=== PATIENT | female | born 1980 | race Caucasian/White ===

== ENCOUNTER 2017-06-04 01:56 | Observation (INO) ==
[2017-06-04] MEDS ORDERED: 0.9 % Sodium Chloride 500 ML IVC ONE (02:15)
[2017-06-04] MEDS ORDERED: Aspirin 81 MG TAB.CHEW PO ONE (02:15)
[2017-06-04] MEDS ORDERED: Nitroglycerin 0.4 MG TAB.SUBL SL PRN (02:17)
[2017-06-04 02:26] LABS: Basophils % 0.5 %; Eosinophils # 0.3 K/mcL (0.0-0.6); Eosinophils % 3.4 %; Hematocrit 39.8 % (35.3-44.9); Hemoglobin 13.1 g/dL (11.5-15.4); Immature Granulocytes % 0.2 % (0-4); Immature Platelets 1.6 % (1.1-6.1); Lymphocytes # 2.1 K/mcL (0.6-4.6); Lymphocytes % 25.2 %; Mean Corpuscular HGB Conc 32.9 g/dL (31.6-35.5); Mean Corpuscular Hemoglobin 28.4 pg (28.0-33.3); Mean Corpuscular Volume 86.3 fL (83.0-100.0); Monocytes # 0.7 K/mcL (0.0-1.3); Monocytes % 8.5 %; Platelet Count 297 K/mcL (140-400); Red Blood Count 4.61 M/mcL (3.82-4.97); Red Cell Distribution Width 12.6 % (11.5-14.5); Segmented Neutrophils % 62.2 %
--- NOTE | 2017-06-04 02:29 | Emergency Department Note ---
Disposition Clinical Impression: Chest pain Qualifiers: Chest pain type: unspecified Qualified Code(s): R07.9 - Chest pain, unspecified Disposition: Admitted As Inpatient Condition: Undetermined Instructions: Chest Pain (ED) Referrals: Telly Conley MD [Primary Care Provider] - Forms: ED Satisfaction Letter Time of Disposition: 05:41 General Adult HPI - General Chief complaint: ED Chest Pain Stated complaint: Jaw Pain, Chest Discomfort Time Seen by Provider: 06/04/17 02:04 Source: patient, family Mode of arrival: ambulatory Limitations: no limitations Nursing Notes Reviewed: Yes Vital Signs Reviewed: Yes - History of Present Illness HPI Narrative: 36-year-old obese female presents to the emergency department with sharp jaw pain that started around 2300 stated as the worst pain of her life. Jaw pain was superseded by chest pain that felt like her "heart was beating off beat", "weird pain I've never had before", "squeezing feeling in chest". Pt did chew 81mg of ASA at this time. When complaints did not go away pt reported to the ED for chest pain workup. Patient denies recent illnesses, difficulty breathing, and shortness of breath ,nausea vomiting or diarrhea, denies cardiac history but reports paternal grandfather with first heart attack at age 35. Pt Subjective Complaint: Chest pain, jaw pain Onset (ago): hour(s) (3) Location: chest, other (jaw) Radiation: non-radiation Pain Severity: severe (initially, then taper off) Pain Scale: 0 Quality: sharp Consistency: intermittent, now resolved Improves with: nothing Worsens with: nothing Associated symptoms: Reports: chest pain. Denies: confusion, cough, diaphoresis , fever/chills, headaches, loss of appetite, nausea/vomiting, shortness of breath - Related Data Allergies Allergy/AdvReac Type Severity Reaction Status Date / Time No Known Allergies Allergy Verified 06/04/17 02:34 All systems ED: reviewed and negative except as stated. Review of Systems: As Per HPI Constitutional: Reports: as per HPI. Denies: fever, chills, weakness Eyes: Reports: as per HPI ENT ED: Reports: as per HPI Cardiovascular: Reports: as per HPI, chest pain. Denies: palpitations, dyspnea on exertion, edema, syncope Respiratory: Reports: as per HPI. Denies: cough, dyspnea, wheezes Gastrointestinal: Reports: as per HPI. Denies: abdominal pain, nausea, vomiting , constipation Neurological: Denies: headache Psychiatric: Reports: anxiety Past Medical History - Past Medical History Attestation: Yes The following information was validated with the patient. 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 - Social History Smoking Status: Never smoker Smokeless Tobacco Status: No Alcohol use: Reports: none Drug use: Reports: none Maternal Grandfather Race: Family Member Living Status: Hx Family Cardiac Disorders: Yes (multi MIs (age 33 was first), heart diseases) Physical Exam - General Limitations: no limitations General appearance: alert, in no apparent distress - Head Head exam: atraumatic, normocephalic, normal inspection - Eye Eye exam: Present: normal appearance, PERRL - Neck Neck exam: Present: normal inspection, full ROM, trachea midline - Chest Chest inspection: Present: normal inspection, symmetric chest wall rise - Respiratory Respiratory exam: Present: normal lung sounds bilaterally. Absent: respiratory distress, wheezes, accessory muscle use - Cardiovascular Cardiovascular exam: Present: normal rhythm, tachycardia, normal heart sounds, systolic murmur (Pt states has never been told of murmur previously--murmur 3/6 systolic) - Abdominal Exam Abdominal exam: Present: soft, Non-Tender, normal bowel sounds. Absent: tenderness, distention - Neurological Exam Neurological exam: Present: alert, oriented X3, CN II-XII intact - Psychiatric Psychiatric exam: Present: normal affect, normal mood, anxious - Skin Skin exam: Present: warm, dry, intact, normal color Course Course Narrative: 36-year-old obese female presents to the emergency department with sharp jaw pain that started around 2300 stated as the worst pain of her life. Jaw pain was superseded by chest pain that felt like her "heart was beating off beat", "weird pain I've never had before", "squeezing feeling in chest". Pt did chew 81mg of ASA at this time. When complaints did not go away pt reported to the ED for chest pain workup. Patient denies recent illnesses, difficulty breathing, and shortness of breath ,nausea vomiting or diarrhea, denies cardiac history but reports paternal grandfather with first heart attack at age 35. - Reevaluation(s) Reevaluation #1: Patient resting comfortably in her room. No further episodes of chest pain. Appears comfortable in no distress. Serum labs returning with negative, EKG SR ; 3/6 systolic murmur on auscultation, pt states was never told she had a murmur Presented assessment, labs, EKG to Dr. Davalos who agrees patient should continue to have ACS rule out workup. Time: 03:17 Reevaluation #2: After review of labs/assesment/risk factors, should be admitted for CP r/o. At this time we do not have telemetry beds available for admission, pt would need to transfer to another facility. Spoke with patient about wishes for admission. Patient expresses wishes to go to [facility]. 0430-[facility] unable to accommodate CP R/O d/t no labor relations director availability. Spoke with patient, agreeable to transfer to [facility]. [facility] placed pt on waiting list for bed at this time. Pt continues to be stable 0500- patient unsure of forming to transfer to [facility] in [place]. Unsure if wants to transfer due to inability to pay because she has no insurance. She is given a [facility]. Encourage patient to follow through which has been rule out tests seen with risks and benefits of staying or going. Time: 04:02 Reevaluation #3: Telemetry bed has been located in the hospital. Hospitalist has been paged for admission to [facility] for chest pain rule out. Case discussed with Dr. Davalos who agrees with plan of care. Patient continues to rest comfortably without chest pain, shortness of breath, difficulty breathing, or any other ailments. 0606--Spoke with Dr. Bustamante, agree to accept pt to hold bed in ED [facility] as soon as mre critical patient is moved and room cleaned. Time: 06:04 Vital Signs Temperature 98.2 F 06/04/17 01:57 Pulse Rate 93 06/04/17 01:57 Respiratory Rate 18 06/04/17 01:57 Blood Pressure 134/90 06/04/17 01:57 O2 Sat by Pulse Oximetry 98 06/04/17 01:57 Temperature 98.2 F 06/04/17 01:57 Pulse Rate 88 06/04/17 04:44 Respiratory Rate 15 06/04/17 04:44 Blood Pressure 112/73 06/04/17 04:44 O2 Sat by Pulse Oximetry 99 06/04/17 04:44 Oxygen Delivery Oxygen Delivery Room Air Medical Decision Making - MDM Narrative Medical decision making narrative: 36-year-old obese female presents to the emergency department with sharp jaw pain that started around 2300 stated as the worst pain of her life. Jaw pain was superseded by chest pain that felt like her "heart was beating off beat", "weird pain I've never had before", "squeezing feeling in chest". Pt did chew 81mg of ASA at this time. When complaints did not go away pt reported to the ED for chest pain workup. Patient denies recent illnesses, difficulty breathing, and shortness of breath ,nausea vomiting or diarrhea, denies cardiac history but reports paternal grandfather with first heart attack at age 35. - Lab Data Result diagrams: 06/04/17 02:15 06/04/17 02:15 Lab Results 06/04/17 06/04/17 06/04/17 Range/Units 02:15 02:15 02:15 WBC 8.1 (4.3-11.1) K/mcL RBC 4.61 (3.82-4.97) M/mcL Hgb 13.1 (11.5-15.4) g/dL Hct 39.8 (35.3-44.9) % MCV 86.3 (83.0-100.0) fL MCH 28.4 (28.0-33.3) pg MCHC 32.9 (31.6-35.5) g/dL RDW 12.6 (11.5-14.5) % Plt Count 297 (140-400) K/mcL MPV 9.0 L (9.4-12.4) fL Immature Gran % 0.2 (0-4) % Seg Neutrophils % 62.2 % Lymphocytes % 25.2 % Monocytes % 8.5 % Eosinophils % 3.4 % Basophils % 0.5 % Neutrophils # 5.0 (1.6-8.9) K/mcL Lymphocytes # 2.1 (0.6-4.6) K/mcL Monocytes # 0.7 (0.0-1.3) K/mcL Eosinophils # 0.3 (0.0-0.6) K/mcL Basophils # 0.0 (0.0-0.2) K/mcL Immature Plt Fraction 1.6 (1.1-6.1) % PT 11.5 (9.4-12.1) Seconds INR 1.1 APTT 26.2 (26.0-36.0) Seconds Sodium 139 (136-145) mEq/L Potassium 3.8 (3.5-5.1) mEq/L Chloride 109 H (98-107) mEq/L Carbon Dioxide 21 L (23-29) mEq/L BUN 19 (6-20) mg/dL Creatinine 0.76 (0.60-1.20) mg/dL Est GFR ( Amer) > 60 (> 60) Est GFR (Non-Af Amer) > 60 (> 60) BUN/Creatinine Ratio 25 (6-26) Glucose 97 (70-105) mg/dL Calculated Osmolality 290 (280-300) Calcium 8.6 (8.6-10.3) mg/dL Total Bilirubin 0.2 L (0.3-1.0) mg/dL Direct Bilirubin 0.0 (0.0-0.2) mg/dL Indirect Bilirubin 0.2 (0.0-1.2) mg/dL AST 14 (13-39) Units/L ALT 12 (7-52) Units/L Alkaline Phosphatase 53 (34-104) Units/L Troponin I (< 0.04) ng/mL Serum Total Protein 6.4 (6.4-8.9) g/dL Albumin 3.8 (3.5-5.7) g/dL Globulin 2.6 (2.4-3.5) g/dL Albumin/Globulin Ratio 1.5 (1.1-2.2) Lipase 15 (11-82) Units/L Urine Color (Yellow) Urine Clarity (Clear) Urine pH (5.0-8.0) pH Units Ur Specific [place] (1.010-1.025) Urine Protein (Neg-Trace) mg/dL Urine Glucose (UA) (Normal) mg/dL Urine Ketones (Negative) mg/dL Urine Blood (Negative) Urine Nitrite (Negative) Urine Bilirubin (Negative) Urine Urobilinogen (Normal) mg/dL Ur Leukocyte Esterase (Negative) Urine Microscopic RBC (0-3) per hpf Urine Microscopic WBC (0-3) per hpf Ur Squamous Epith Cells (None-Few) per lpf Urine Bacteria (None-Few) per hpf Hyaline Casts (None-Few) per lpf Ur Culture Indicated? (NO) Urine Test (Negative) 06/04/17 06/04/17 06/04/17 Range/Units 02:15 02:40 02:40 WBC (4.3-11.1) K/mcL RBC (3.82-4.97) M/mcL Hgb (11.5-15.4) g/dL Hct (35.3-44.9) % MCV (83.0-100.0) fL MCH (28.0-33.3) pg MCHC (31.6-35.5) g/dL RDW (11.5-14.5) % Plt Count (140-400) K/mcL MPV (9.4-12.4) fL Immature Gran % (0-4) % Seg Neutrophils % % Lymphocytes % % Monocytes % % Eosinophils % % Basophils % % Neutrophils # (1.6-8.9) K/mcL Lymphocytes # (0.6-4.6) K/mcL Monocytes # (0.0-1.3) K/mcL Eosinophils # (0.0-0.6) K/mcL Basophils # (0.0-0.2) K/mcL Immature Plt Fraction (1.1-6.1) % PT (9.4-12.1) Seconds INR APTT (26.0-36.0) Seconds Sodium (136-145) mEq/L Potassium (3.5-5.1) mEq/L Chloride (98-107) mEq/L Carbon Dioxide (23-29) mEq/L BUN (6-20) mg/dL Creatinine (0.60-1.20) mg/dL Est GFR ( Amer) (> 60) Est GFR (Non-Af Amer) (> 60) BUN/Creatinine Ratio (6-26) Glucose (70-105) mg/dL Calculated Osmolality (280-300) Calcium (8.6-10.3) mg/dL Total Bilirubin (0.3-1.0) mg/dL Direct Bilirubin (0.0-0.2) mg/dL Indirect Bilirubin (0.0-1.2) mg/dL AST (13-39) Units/L ALT (7-52) Units/L Alkaline Phosphatase (34-104) Units/L Troponin I < 0.03 (< 0.04) ng/mL Serum Total Protein (6.4-8.9) g/dL Albumin (3.5-5.7) g/dL Globulin (2.4-3.5) g/dL Albumin/Globulin Ratio (1.1-2.2) Lipase (11-82) Units/L Urine Color Yellow (Yellow) Urine Clarity Clear (Clear) Urine pH 6.0 (5.0-8.0) pH Units Ur Specific [place] 1.026 H (1.010-1.025) Urine Protein Negative (Neg-Trace) mg/dL Urine Glucose (UA) Normal (Normal) mg/dL Urine Ketones 40 H (Negative) mg/dL Urine Blood Negative (Negative) Urine Nitrite Negative (Negative) Urine Bilirubin Negative (Negative) Urine Urobilinogen Normal (Normal) mg/dL Ur Leukocyte Esterase Small H (Negative) Urine Microscopic RBC 0-3 (0-3) per hpf Urine Microscopic WBC 5-15 H (0-3) per hpf Ur Squamous Epith Cells Many H (None-Few) per lpf Urine Bacteria Few (None-Few) per hpf Hyaline Casts None Seen (None-Few) per lpf Ur Culture Indicated? NO. (NO) Urine Test Negative (Negative)
[2017-06-04 02:30] LABS: INR 1.1; Prothrombin Time 11.5 Seconds (9.4-12.1)
[2017-06-04 02:32] LABS: Activated Partial Thrombo Time 26.2 Seconds (26.0-36.0)
[2017-06-04 02:47] LABS: Alanine Aminotransferase 12 Units/L (7-52); Albumin 3.8 g/dL (3.5-5.7); Albumin/Globulin Ratio 1.5 (1.1-2.2); Alkaline Phosphatase 53 Units/L (34-104); Aspartate Amino Transferase 14 Units/L (13-39); BUN/Creatinine Ratio 25 (6-26); Bilirubin,Indirect 0.2 mg/dL (0.0-1.2); Bilirubin,Total 0.2 mg/dL (0.3-1.0); Blood Urea Nitrogen 19 mg/dL (6-20); Calcium 8.6 mg/dL (8.6-10.3); Carbon Dioxide 21 mEq/L (23-29); Chloride 109 mEq/L (98-107); Globulin 2.6 g/dL (2.4-3.5); Glucose 97 mg/dL (70-105); Lipase 15 Units/L (11-82); Osmolality,Calculated 290 (280-300); Potassium 3.8 mEq/L (3.5-5.1); Sodium 139 mEq/L (136-145); Total Protein 6.4 g/dL (6.4-8.9); eGFR For African Americans > 60 (> 60); eGFR For Non-African Americans > 60 (> 60)
[2017-06-04 03:19] LABS: Bilirubin,Urine Negative (Negative); Blood,Urine Negative (Negative); Clarity,Urine Clear (Clear); Color,Urine Yellow (Yellow); Glucose,Urine (UA) Normal (Normal); Ketones,Urine 40 mg/dL (Negative); Leukocyte Esterase,Urine Small (Negative); Nitrite,Urine Negative (Negative); Protein,Urine Negative (Neg-Trace); Specific Gravity,Urine 1.026 (1.010-1.025); Urobilinogen,Urine Normal (Normal)
[2017-06-04 03:22] LABS: Bacteria,Urine Few per hpf (None-Few); Hyaline Casts,Urine None Seen per lpf (None-Few); Squamous Epithelial Cell,Urine Many per lpf (None-Few)
[2017-06-04 03:38] LABS: RBC,Urine 0-3 per hpf (0-3)
--- NOTE | 2017-06-04 06:14 | Emergency Department Note ---
Attestation Statement - Attestation Attestation: I, Lucas Davalos MD, personally evaluated this patient and discussed their management with the midlevel provicer, PAC/COMPO CONVEYOR OPERATOR. I reviewed the midlevel provider 's note and agree with the documented findings, medical decision making, and plan of care. 36-year-old female presents to the emergency department with a complaint of an episode of left jaw pain this evening about 11:30. The jaw pain lasted several minutes and then she developed like palpitations and discomfort across her upper chest. Some nausea and shortness of breath. No diaphoresis. She states later the left jaw pain returned. She has no prior history of any heart problems. No history of hypertension or diabetes or hyperlipidemia. She does have a very strong family history of early heart disease in their 30s. On examination patient is a well-developed obese female in no acute distress. She is alert and oriented 3. There is no cyanosis or diaphoresis. Chest is nontender to palpation. Breath sounds are clear and equal bilaterally. Heart regular rate and rhythm. Abdomen soft and nontender with normal bowel sounds. No pedal edema. Labs reviewed. Troponin normal. No acute changes on EKG. Chest x-ray negative. The hospitalist, Dr. Bustamante, was consulted and accepted admission of the patient.
--- NOTE | 2017-06-04 08:00 | Internal Med History&Physical ---
Date of Encounter: 06/04/17 Time of Encounter: 07:58 Assessment and Plan (1) Chest pain Current visit: Yes Status: Acute Intermittent left jaw pain no relation with exertion. EKG without ischemic changes. Will trend troponin. She is also on oral contraceptive pills so a D- dimer will be checked. Observation admission. Qualifiers: Chest pain type: unspecified Qualified Code(s): R07.9 - Chest pain, unspecified (2) DVT prophylaxis Current visit: Yes Status: Acute Subcutaneous heparin Internal Medicine - H&P: HPI Chief complaint: chest pain History of present illness: Ms. Lema is a 36 year old female was a waking from sleep yesterday 11 PM with left jaw pain. This lasted for approximately 2 minutes associated with pain in the retrosternal area. Pain was associated with sweating. There was no relational exertion to pain. No prior similar episodes. She is an oral contraceptive pills does not smoke. No prior history of DVT or PE. No FH of premature CAD in 1st degree relatives (only grandparents). She denies any other medical problems. She was off pain during my interview. Past Med Surg Social Fam HX - Past Medical History Medical history: no medical history Psychiatric history: anxiety, depression - Social History Smoking Status: Never smoker Smokeless Tobacco Status: No Alcohol use: none Drug use: none - Family History Maternal Grandfather Living Status: Hx Family Cardiac Disorders: Yes (multi MIs (age 33 was first), heart diseases) Internal Medicine - H&P: Meds Norgestimate-Ethinyl Estradiol [[place]-Linyah 28 Tablet] 1 tab PO DAILY 06/04/17 [ History] 3 Allergy/AdvReac Type Severity Reaction Status Date / Time No Known Allergies Allergy Verified 06/04/17 02:34 All Systems PM: A 10-system review of systems was performed and is negative for pertinent findings except as documented above in the HPI. Review of systems: 10 point review systems is negative except for HPI - Constitutional Vitals: Temp Pulse Resp BP Pulse Ox 98.2 F 77 18 133/82 97 06/04/17 01:57 06/04/17 06:47 06/04/17 06:47 06/04/17 06:47 06/04/17 06:47 Exam: Gen.: patient is alert oriented times 3 not in distress. Cardiac: normal S1 S2 no additional sounds are murmurs. Chest: clear to auscultation. Abdomen: soft nontender nondistended. Lower extremity no swelling mucous membranes: moist Internal Med - H&P Results - Labs CBC & Chem 7: 06/04/17 02:15 06/04/17 02:15 Labs: Short CBC 06/04/17 Range/Units 02:15 WBC 8.1 (4.3-11.1) K/mcL Hgb 13.1 (11.5-15.4) g/dL Hct 39.8 (35.3-44.9) % Plt Count 297 (140-400) K/mcL Neutrophils # 5.0 (1.6-8.9) K/mcL BMP 06/04/17 02:15 Sodium 139 Potassium 3.8 Chloride 109 H Carbon Dioxide 21 L BUN 19 Creatinine 0.76 Glucose 97 Calcium 8.6 Cardiac Enzymes 06/04/17 Range/Units 02:15 Troponin I < 0.03 (< 0.04) ng/mL Liver Function 06/04/17 Range/Units 02:15 Total Bilirubin 0.2 L (0.3-1.0) mg/dL Direct Bilirubin 0.0 (0.0-0.2) mg/dL AST 14 (13-39) Units/L ALT 12 (7-52) Units/L Alkaline Phosphatase 53 (34-104) Units/L Albumin 3.8 (3.5-5.7) g/dL Urine 06/04/17 Range/Units 02:40 Urine Color Yellow (Yellow) Urine Clarity Clear (Clear) Urine pH 6.0 (5.0-8.0) pH Units Ur Specific [place] 1.026 H (1.010-1.025) Urine Protein Negative (Neg-Trace) mg/dL Urine Glucose (UA) Normal (Normal) mg/dL - Impressions ITS Impressions Chest X-Ray 06/04/17 02:15 IMPRESSION: Negative portable chest. D/ / Gaston Morelos MD / Gaston Morelos MD Interpreting Provider: Gaston Morelos MD
[2017-06-04] MEDS: Aspirin 81 MG TAB.CHEW PO SCH (12:30)
[2017-06-04] MEDS: Acetaminophen 325 MG TABLET PO PRN (12:30)
[2017-06-04] MEDS ORDERED: Ibuprofen 600 MG TABLET PO ONE (17:41)
[2017-06-05] MEDS: Acetaminophen 325 MG TABLET PO PRN ×2 (02:08→10:03)
[2017-06-05 06:32] VITALS: BP 125/78
[2017-06-05] MEDS: Aspirin 81 MG TAB.CHEW PO SCH (09:57)
--- NOTE | 2017-06-05 11:46 | Discharge Summary ---
Date of Encounter: 06/05/17 Time of Encounter: 11:42 - Discharge Diagnosis (1) Chest pain Priority: Primary Status: Acute Qualifiers: Chest pain type: unspecified Qualified Code(s): R07.9 - Chest pain, unspecified (2) Pain in upper jaw Priority: Primary Status: Acute (3) Anxiety Priority: Secondary Status: Acute - Discharge Medications Prescriptions: Tramadol HCl [Ultram] 50 mg PO TID PRN #15 tab PRN Reason: Pain Home Medications: Norgestimate-Ethinyl Estradiol [[place]-Linyah 28 Tablet] 1 tab PO DAILY 06/04/17 [ History] Aspirin 81 mg PO DAILY #30 tab.chew 06/05/17 [Rx] Tramadol HCl [Ultram] 50 mg PO TID PRN #15 tab 06/05/17 [Rx] Allergies/Adverse Reactions: 3 Allergy/AdvReac Type Severity Reaction Status Date / Time No Known Allergies Allergy Verified 06/04/17 02:34 Date of admission: 06/04/17 08:35 Primary care physician: Telly Conley MD - Patient Status Disposition: Home, Self-Care Condition: Good Overall status at discharge: patient is back to baseline - Discharge Instructions Follow Up With: Telly Conley MD [Primary Care Provider] - - Diet and Activity Activity: increase activity as tolerated Diet: low salt diet Hospital course: Ms. Lema is a 36 year old female was a waking from sleep yesterday 11 PM with left jaw pain. This lasted for approximately 2 minutes associated with pain in the retro sternal area. Pain was associated with sweating. There was no relational exertion to pain. No prior similar episodes. She is an oral contraceptive pills does not smoke. No prior history of DVT or PE. No FH of premature CAD in 1st degree relatives (only grandparents have CAD in their early ages ). Pt was admitted in the hospital and placed her on conveyor monitor. Checked her serial troponin, which were negative. Her EKG showed NSR, NO ST T changes, no acute ischemic changes noticed. She remained CP free, however she still has some soreness in Left upper jaw. I examined her teeth, no cavities noticed. However recommend to f/u with Dentist. Since pt had significant FH of CAD, suggested to have an out pt stress test. - Time Spent with Patient Total time spent providing and/or coordinating discharge services: - Constitutional Vitals: Temp Pulse Resp BP Pulse Ox 97.7 F 80 16 125/78 96 06/05/17 06:31 06/05/17 06:31 06/05/17 06:31 06/05/17 06:31 06/05/17 06:31 General appearance: Present: A&O X 3, no acute distress - Head Head exam: Present: atraumatic, normal inspection - Neck Neck exam general surgery: Present: supple - Respiratory Respiratory exam: Present: CTAB. Absent: accessory muscle use, rales, rhonchi, wheezes - Cardiovascular Cardiovascular exam: Present: RRR, +S1, +S2. Absent: tachycardia - GI/Abdominal GI/Abdominal exam: Present: normal bowel sounds, soft. Absent: rebound, rigid, tenderness - Extremities Exam Extremities exam: Absent: calf tenderness, pedal edema, tenderness - Neurological Exam Neurological exam: Present: alert, oriented X3 - Psychiatric Psychiatric exam: Present: normal affect, normal mood - VTE Documentation of Mechanical Device: Venous foot pump, device
--- NOTE | 2017-06-06 18:02 | Electrocardiograph Report ---
[employer] Test Date: 2017-06-04 Pat Name: Jovanna Lema Department: 104 Room: [facility] Gender: F Rfid Strategist: MELIZA : 1980 Requested By: Florencia Giraldo Order Number: [id number] Reading MD: Rai Stokes MD Measurements Intervals [place] Rate: 91 P: 39 MN: 139 QRS: 42 QRSD: 85 T: 19 QT: 327 QTc: 376 Interpretive Statements SINUS RHYTHM wnl Electronically Signed On 06-06-2017 18:01:09 EST by Rai Stokes MD
== END 2017-06-05 13:00 | disposition home or self-care (01) ==
LOC: 2SOUTHHOLD 01:56 → EMEROO 01:56 → SUATTDRO 08:35 → 2SOUTHHOLD 10:46 → 3NENU 06-05 01:13
PROVIDERS: ADMIT Hospitalist; ATTEND Family Medicine